=== PATIENT | male | born 1950 | race African-American/Black ===

== ENCOUNTER 2018-12-23 07:42 | Emergency (ER) | payer MEDICARE, MEDICAID ==
[~2018-12-23] VITALS: Ht 180.3 cm; Wt 83.9 kg
[2018-12-23 08:01] VITALS: BP 136/85
[2018-12-23] MEDS ORDERED: ACETAMINOPHEN 325 MG TAB PO ONE (08:30)
== END 2018-12-23 08:48 | disposition home or self-care (01) ==
LOC: ER 07:42
DX: S16.1XXA Strain of muscle, fascia and tendon at neck level, initial encounter (principal); S63.602A Unspecified sprain of left thumb, initial encounter; J45.909 Unspecified asthma, uncomplicated; V43.62XA Car passenger injured in collision with other type car in traffic accident, initial encounter; Y93.89 Activity, other specified; Y92.488 Other paved roadways as the place of occurrence of the external cause; Y99.8 Other external cause status
CPT/HCPCS: 72040